=== PATIENT | male | born 1995 | race Caucasian/White ===

== ENCOUNTER 2021-01-23 19:05 | Emergency (ER) | payer SELFPAY ==
[2021-01-23 20:50] VITALS: BP 124/83; PULSE 58; RESP 18; TEMP 36.1; O2SAT 98; BMI 22.8
--- NOTE | 2021-01-23 21:59 | W.ED.NAVMDI ---
HPI - Nausea/Vomiting/Diarrhea General: Chief complaint: Nausea/Vomiting/Diarrhea Stated complaint: Should was popped back in\Fever Time Seen by Provider: 01/23/21 21:46 Source: patient Mode of arrival: ambulatory Limitations: no limitations History of Present Illness: HPI Narrative: Patient is a 25-year-old male here for two separate complaints . He tells me first of all he is having pain to his right shoulder. He tells me 2 days ago he dislocated it but was able to reduce it himself. He tells me he has dislocated his shoulder previously. He tells me approximately a year ago he had an MRI of the shoulder that showed a labrum tear however due to insurance constraints he never followed up with an orthopedic provider. He states shoulder continues to intermittently bother him. Patient states his second complaint is nausea and diarrhea that he has had over the past 3 to 4 days. He reports a total of 10-15 non-bloody diarrhea stools. He is not having abdominal pain. No vomiting. He has had chills and body aches. No fevers. MD elicited complaint: nausea, diarrhea and other (R shoulder pain) Onset (ago): day(s) Description of diarrhea: watery Associated nausea: Yes Associated abdominal pain: No Exacerbating factors: other (movement of shoulder) Associated symtoms: Reports nausea; Denies change in vision, chest pain, dysuria, fatigue, headache(s), malaise, palpitations or syncope Review of Systems Const: Denies: fever(s), chills, body aches, fatigue or malaise Eyes: Denies: change in vision or blurry vision Card: Denies: chest pain, palpitations, irregular heart rhythm, lightheadedness, syncope or dyspnea on exertion Resp: Denies: dyspnea, productive cough or pain on inspiration GI: Reports: nausea and diarrhea; Denies: abdominal pain, vomiting, hematemesis, heartburn, hematochezia or melena : Denies: flank pain, difficulty urinating, dysuria or hematuria Musc: Reports: joint pain (R shoulder) and limited range of motion (secondary to pain); Denies: neck pain, back pain, extremity pain, extremity swelling or joint swelling Skin/Breast: Denies: rash Neuro: Denies: headache(s), numbness in extremities, weakness in extremities or sensory changes Physical Exam Const: COMMON NORMALS: no acute distress, average body habitus, patient oriented x3, no limitations, healthy appearing, alert and well nourished GENERAL APPEARANCE: cooperative ORIENTATION/CONSCIOUSNESS: Yes awake, Yes oriented to person, Yes oriented to place and Yes oriented to time Resp: COMMON NORMALS: normal respiratory effort and clear to auscultation bilaterally AUSCULTATION: clear to auscultation bilaterally Cardio: COMMON NORMALS: regular rate and regular rhythm RATE: regular rate RHYTHM: regular rhythm GI: COMMON NORMALS: Normal to inspection, nondistended, normoactive bowel sounds present, Soft to palpation, non-tender, No hepatosplenomegaly present and no masses AUSCULTATION: Yes normoactive bowel sounds PALPATION: Yes Soft to palpation and Yes No hepatosplenomegaly present Extremity: GENERAL: Yes normal exam except as noted RIGHT UPPER EXTREMITY: Yes shoulder joint Right shoulder: Yes Right shoulder joint inspection exam (TTP anterior glenohumeral joint), Yes Right shoulder joint ROM exam (limited past about 90 deg of flexion/abduction) and Yes Right shoulder joint neurovascular exam (normal) Neuro: COMMON NORMALS: patient oriented x3, moves all extremities, no focal motor deficits and no sensory deficits noted SENSORIUM/ORIENTATION: Yes alert, Yes oriented to person, Yes oriented to place and Yes oriented to time Course Vital Signs: Vital signs: Vital Signs Temperature 97.0 F L 01/23/21 20:50 Pulse Rate 59 L 01/23/21 23:00 Respiratory Rate 16 01/23/21 23:00 Blood Pressure 122/75 01/23/21 23:00 Pulse Oximetry 98 01/23/21 23:00 MDM - Nausea/Vomiting/Diarrhea MDM Narrative: Medical decision making narrative: Labs overall are unremarkable. He was positive for COVID. Patient was given instructions on quarantine. Return to ED precautions given. Will have CM set him up with PCP for shoulder and they can refer to ortho if indicated. Lab Data: Labs: Lab Results 01/23/21 01/23/21 01/23/21 Range/Units 22:06 22:09 22:09 WBC 6.1 (4.0-10.0) 10^3/ uL RBC 4.32 (4.1-5.3) 10^6/u L Hgb 13.0 (11.7-16.6) g/dL Hct 41.0 L (42.0-52.0) % MCV 94.9 H (80-94) fL MCH 30.1 (28.0-34.0) pg MCHC 31.7 (30.0-36.0) g/dL RDW 13.5 (12.1-15.1) % Plt Count 185 (130-400) 10^3/c mm MPV 8.8 (7.4-10.4) fL Neut % (Auto) 70.0 % Lymph % (Auto) 16.8 % [place] % (Auto) 9.9 % Eos % (Auto) 2.0 % Baso % (Auto) 0.8 % Neut # (Auto) 4.26 (1.8-7.7) 10^3/u L Lymph # (Auto) 1.0 (0.8-4.8) 10^3/u L [place] # (Auto) 0.6 (0.2-0.9) 10^3/u L Eos # (Auto) 0.1 (0.0-0.8) 10^3/u L Baso # (Auto) 0.1 (0.0-0.1) 10^3/u L Nucleated RBC % (a uto) 0 % Nucleated RBCs # 0.0 /100WBC Sodium 139 (136-145) mmol/L Potassium 4.3 (3.5-5.1) mmol/L Chloride 103 (98-107) mmol/L Carbon Dioxide 29 (22-29) mmol/L Anion Gap 11.3 (5-19) BUN 11 (6-20) mg/dL Creatinine 0.6 L (0.7-1.2) mg/dL GFR Calculation 161.6 H (90-130) mL/min Glucose 95 (65-115) mg/dL Calculated Osmolal ity 287 (285-295) mOsm/k g Calcium 8.7 (8.5-10.5) mg/dL Total Bilirubin 0.3 (0.15-1.2) mg/dL AST 11 (0-40) U/L ALT 11 (0-41) U/L Alkaline Phosphata se 75 (40-130) IU/L Total Protein 6.8 (6.6-8.7) g/dL Albumin 4.2 (3.5-5.2) g/dL Globulin 2.6 (1.3-4.6) g/dL Lipase 53 (13-60) U/L Urine Color Yellow (Yellow) Urine Appearance Clear (CLEAR) Urine pH 6 (5-7) Ur Specific Gravit y 1.010 (1.005-1.030) Urine Protein Neg (Negative) Urine Glucose (UA) Norm (Normal) Urine Ketones Negative (Negative) Urine Blood Neg (Negative) Urine Nitrate Negative (Negative) Urine Bilirubin Neg (Negative) Urine Urobilinogen Norm (Negative) mg/dL Ur Leukocyte [place] Negative (Negative) SARS-CoV-2 Ag (Rap id) (Negative) 01/23/21 Range/Units 22:09 WBC (4.0-10.0) 10^3/ uL RBC (4.1-5.3) 10^6/u L Hgb (11.7-16.6) g/dL Hct (42.0-52.0) % MCV (80-94) fL MCH (28.0-34.0) pg MCHC (30.0-36.0) g/dL RDW (12.1-15.1) % Plt Count (130-400) 10^3/c mm MPV (7.4-10.4) fL Neut % (Auto) % Lymph % (Auto) % [place] % (Auto) % Eos % (Auto) % Baso % (Auto) % Neut # (Auto) (1.8-7.7) 10^3/u L Lymph # (Auto) (0.8-4.8) 10^3/u L [place] # (Auto) (0.2-0.9) 10^3/u L Eos # (Auto) (0.0-0.8) 10^3/u L Baso # (Auto) (0.0-0.1) 10^3/u L Nucleated RBC % (a uto) % Nucleated RBCs # /100WBC Sodium (136-145) mmol/L Potassium (3.5-5.1) mmol/L Chloride (98-107) mmol/L Carbon Dioxide (22-29) mmol/L Anion Gap (5-19) BUN (6-20) mg/dL Creatinine (0.7-1.2) mg/dL GFR Calculation (90-130) mL/min Glucose (65-115) mg/dL Calculated Osmolal ity (285-295) mOsm/k g Calcium (8.5-10.5) mg/dL Total Bilirubin (0.15-1.2) mg/dL AST (0-40) U/L ALT (0-41) U/L Alkaline Phosphata se (40-130) IU/L Total Protein (6.6-8.7) g/dL Albumin (3.5-5.2) g/dL Globulin (1.3-4.6) g/dL Lipase (13-60) U/L Urine Color (Yellow) Urine Appearance (CLEAR) Urine pH (5-7) Ur Specific Gravit y (1.005-1.030) Urine Protein (Negative) Urine Glucose (UA) (Normal) Urine Ketones (Negative) Urine Blood (Negative) Urine Nitrate (Negative) Urine Bilirubin (Negative) Urine Urobilinogen (Negative) mg/dL Ur Leukocyte [place] a[place] (Negative) SARS-CoV-2 Ag (Rap id) Positive H (Negative) Imaging Data^: XR R shoulder: Radiologist's impression: [address] [address] XRay Report Signed Patient: Lv Trammell Unit #: [id number] : 1995 Age/Sex: 25 / M ADM Date: 01/23/21 Loc: ER Room/Bed: Attending Dr: Ordering Provider/Ordering MD: Inna Davis Date of Service: 01/23/21 Procedure(s): XR shoulder RT min 2V* 20205 Accession Number(s): [id number] Report Number: [id number] PROCEDURE INFORMATION: Exam: XR Right Shoulder Exam date and time: 01/23/2021 9:59 PM Age: 25 years old Clinical indication: Pain; Right; Patient HX: Shoulder popped out and back in; Additional info: Injury TECHNIQUE: Imaging protocol: XR Right shoulder. Views: 2 or more views. COMPARISON: No relevant prior studies available. FINDINGS: Bones/joints: There is no acute fracture or dislocation. If symptoms persist, follow-up imaging in several days may be useful to exclude an occult fracture. No other significant acute bone or joint abnormality. Soft tissues: No significant acute finding. XR/XR shoulder RT min 2V* 80116 IMPRESSION: No acute fracture or dislocation. Dictated By: Samuel Valadez MD Signed By: Samuel Valadez MD Signed Date/Time: 01/23/212306 DD/ 04 Discharge Plan Discharge Patient Disposition: Home Clinical Impression: Acute pain of right shoulder, COVID-19 Condition: Stable Discharge Orders: Discharge ED (Routine); Ordered 01/23/21 Ordered By: Inna Davis Activity Restrictions/Additional Instructions: For most symptomatic immunocompetent patients cared for at home, isolation can usually be discontinued when the following criteria are met: ?At least 10 days have passed since symptoms first appeared AND ?At least one day (24 hours) has passed since resolution of fever without the use of fever-reducing medications AND ?There is improvement in symptoms (eg, cough, shortness of breath) Stand Alone Forms: Work/School Release Coding Level of Care Code ED [facility] Operator for [facility] Fwd Exam Detailed
[2021-01-23 22:11] LABS: Add Urine Microscopic? NO; Charge for UA Resulting for Rev
[2021-01-23 22:15] LABS: Bilirubin Urine Neg (Negative); Blood Urine Neg (Negative); Glucose Urine UA Norm (Normal); Ketones Urine Negative (Negative); Leukocyte Esterase Urine Negative (Negative); Nitrate Urine Negative (Negative); Protein Urine Neg (Negative); Urine Appearance Clear (CLEAR); Urine Color Yellow (Yellow); Urobilinogen Urine Norm (Negative); pH Urine 6 (5-7)
[2021-01-23 22:18] VITALS: BP 130/95; PULSE 60; RESP 17; O2SAT 98
[2021-01-23 22:21] LABS: Basophils # 0.1 10^3/uL (0.0-0.1); Basophils % 0.8 %; Eosinophils # 0.1 10^3/uL (0.0-0.8); Lymphocytes % 16.8 %; Mean Corpuscular HGB Conc 31.7 g/dL (30.0-36.0); Mean Corpuscular Hemoglobin 30.1 pg (28.0-34.0); Mean Corpuscular Volume 94.9 fL (80-94); Mean Platelet Volume 8.8 fL (7.4-10.4); Monocytes # 0.6 10^3/uL (0.2-0.9); Monocytes % 9.9 %; Neutrophils # 4.26 10^3/uL (1.8-7.7); Nucleated Red Blood Cells % 0 %; Platelet Count 185 10^3/cmm (130-400); Red Blood Count 4.32 10^6/uL (4.1-5.3); Red Cell Distribution Width 13.5 % (12.1-15.1); White Blood Count 6.1 10^3/uL (4.0-10.0)
[2021-01-23 22:42] LABS: Alanine Aminotransferase 11 U/L (0-41); Albumin Level 4.2 g/dL (3.5-5.2); Alkaline Phosphatase 75 IU/L (40-130); Anion Gap 11.3 (5-19); Aspartate Amino Transferase 11 U/L (0-40); Blood Urea Nitrogen 11 mg/dL (6-20); Calcium 8.7 mg/dL (8.5-10.5); Carbon Dioxide 29 mmol/L (22-29); Chloride 103 mmol/L (98-107); Globulin 2.6 g/dL (1.3-4.6); Glomerular Filtration Rate 161.6 mL/min (90-130); Glucose 95 mg/dL (65-115); Lipase 53 U/L (13-60); Osmolality Calculated 287 mOsm/kg (285-295); Potassium 4.3 mmol/L (3.5-5.1); Sodium 139 mmol/L (136-145); Total Bilirubin 0.3 mg/dL (0.15-1.2); Total Protein 6.8 g/dL (6.6-8.7)
[2021-01-23 22:44] LABS: SARS Covid-2 Antigen Positive (Negative)
[2021-01-23 23:00] VITALS: BP 122/75; PULSE 59; RESP 16; O2SAT 98
[2021-01-23 23:39] VITALS: BP 119/74; PULSE 56; RESP 16; TEMP 36.5; O2SAT 98
== END 2021-01-23 23:41 | disposition home or self-care (01) ==
PROVIDERS: Emergency Provider Physician Assistant
DX: M25.511 Pain in right shoulder (principal); U07.1 COVID-19
CPT/HCPCS: 73030; 80053; 81003; 83690; 85025; 87426; 99283

== ENCOUNTER 2021-01-25 10:43 | Emergency (ER) | payer SELFPAY ==
[2021-01-25 11:00] VITALS: BP 148/109; PULSE 81; RESP 20; TEMP 37.2; O2SAT 98; BMI 24.5
--- NOTE | 2021-01-25 11:12 | W.ED.COVID ---
HPI - COVID General: Chief Complaint: COVID symptoms Stated Complaint: COVID +/BODY ACHES,FEVER, SOB Time Seen by Provider: 01/25/21 11:04 Triage information: No fever, cough or shortness of breath. No known COVID + exposure last 14 days History of Present Illness: HPI Narrative: Patient is a 25-year-old male comes to the ED with cough, body aches and shortness of breath. Patient tested positive for COVID-19 on January 23. Patient said he has been having symptoms of cough, body aches, diarrhea and shortness of breath since January 22. His cough is dry nonproductive. He states he had a subjective fever for the past couple days. Denies any abdominal pain, nausea/vomiting. COVID 19 common symptoms: positive non-productive cough, dyspnea, body aches and diarrhea; negative fever(s), chills, productive cough, fatigue, headache(s), throat pain, nasal congestion, nausea or vomiting COVID 19 other sytmptoms: negative chest pain COVID Results: SARS-CoV-2 Antigen (Rapid) Positive (Negative) H 01/23/21 22:09 01/23/21 Review of Systems Const: Reports: body aches; Denies: fever(s), chills or fatigue Eyes: Denies: change in vision or eye discomfort ENMT: Denies: throat pain, odynophagia, nasal discharge or nasal congestion Card: Denies: chest pain, palpitations, edema, swelling of feet/ankles, dyspnea on exertion or orthopnea Resp: Reports: dyspnea and non-productive cough; Denies: productive cough GI: Reports: diarrhea; Denies: abdominal pain, nausea, vomiting, constipation or hematochezia : Denies: flank pain, difficulty urinating, dysuria or hematuria Musc: Denies: neck pain, back pain or extremity swelling Skin/Breast: Denies: rash or new lesions Neuro: Denies: headache(s), numbness in extremities or weakness in extremities Physical Exam Const: COMMON NORMALS: no acute distress, patient oriented x3, healthy appearing and alert GENERAL APPEARANCE: cooperative and comfortable HENMT: COMMON NORMALS: normocephalic HEAD & SCALP: normocephalic MOUTH: Normal oral and palatal mucosa present THROAT: posterior oropharynx normal and uvula midline Neck/C-Spine: COMMON NORMALS: supple GENERAL: Yes normal visual inspection Resp: COMMON NORMALS: normal respiratory effort, No retractions, No use of accessory muscles and clear to auscultation bilaterally EFFORT & INSPECTION: Yes able to speak in complete sentences, No tachypneic, No respiratory distress and No labored AUSCULTATION: clear to auscultation bilaterally Cardio: COMMON NORMALS: regular rate, regular rhythm, S1 normal heart sound present, S2 normal heart sound present, No gallops present (Cardio), No clicks present (Cardio), No murmurs present (Cardio) and Peripheral pulses 2+ throughout RATE: regular rate RHYTHM: regular rhythm HEART SOUNDS: S1 normal heart sound present and S2 normal heart sound present PERIPHERAL PULSES: Peripheral pulses 2+ throughout GI: COMMON NORMALS: Normal to inspection, nondistended, normoactive bowel sounds present, Soft to palpation, non-tender and no masses PALPATION: Yes Soft to palpation : COMMON NORMALS: Yes no CVA tenderness BLADDER/KIDNEY EXAM: Yes no CVA tenderness Back/Pelvis: COMMON NORMALS: no CVA tenderness Extremity: COMMON NORMALS: normal to inspection Neuro: COMMON NORMALS: patient oriented x3 and moves all extremities SENSORIUM/ORIENTATION: Yes alert Skin: GENERAL SKIN EXAM: dry skin Course Vital Signs: Vital signs: Vital Signs Temperature 98.9 F 01/25/21 11:00 Pulse Rate 81 01/25/21 11:00 Respiratory Rate 20 H 01/25/21 11:00 Blood Pressure 148/109 01/25/21 11:00 Pulse Oximetry 98 01/25/21 11:00 MDM - COVID MDM Narrative: Medical decision making narrative: Patient is a 25-year-old male that tested positive for COVID-19 on January 23. He is having symptoms of a cough, body aches and shortness of breath. I saw patient in the [facility] waiting room and performed history and exam there. Exam of patient shows a nontoxic-appearing 25-year-old male in no acute distress or pain. His lungs were clear to auscultation bilaterally and he does not appear in any respiratory distress. Vitals show O2 saturation 98% on room air. I ordered a chest x-ray to evaluate patient's lungs and I told him I had come back in and discuss plan and chest x-ray findings after chest x-ray performed. Patient left Covid waiting room and did not tell any of the staff and has not come back since. Chest x-ray was not performed due to patient being gone. Patient left AGAINST MEDICAL ADVICE. COVID Results: SARS-CoV-2 Antigen (Rapid) Positive (Negative) H 01/23/21 22:09 01/23/21 Discharge Plan Discharge Patient Disposition: Left Against Medical Advice Clinical Impression: COVID-19 Condition: Stable Discharge Diet: Regular Discharge Activity: Increase activity as tolerated Patient Instructions: Upper Respiratory Infection (ED), Viral Syndrome (ED) Activity Restrictions/Additional Instructions: Follow-up with medical provider as directed. Take medications as prescribed. Return to the ER or your medical provider if condition worsens. Please read and understand discharge instructions. Thank you for choosing [facility] for your healthcare needs today. Please realize this is an emergency room and that we are providing you with a medical screening exam and this may not be complete and all inclusive of all the testing and or work up that you may need to determine your ailment or severity of your illness. It is very important that you follow up as instructed or that you return to the Emergency Department should you have concerns or if your condition changes or worsens in any way. Coding Level of Care Code ED Supervisor [place] Department for [facility] Mcmahon Exam Comprehensive
--- NOTE | 2021-01-27 09:57 | PC.SOCIAL ---
Referral received to set up with PCP. Called 01/26/21 unable to reach patient but did reach fiance and left message with her. No return call received. Called today 01/27/2021 fiance answered and patient requests to call me back later to discuss. Number provided. At this time an appt has not been scheduled for PCP. If patient returns call and is interested will help arrange PCP at that time.
== END 2021-01-25 11:35 | disposition left against medical advice (07) ==
PROVIDERS: Emergency Provider Physician Assistant
DX: U07.1 COVID-19 (principal)
CPT/HCPCS: 99281